=== PATIENT | female | born 1965 | race Caucasian/White ===

== ENCOUNTER 2017-06-09 09:37 | Inpatient (IN) | payer BC ==
[~2017-06-09] VITALS: Ht 160 cm; Wt 101.3 kg
[~2017-06-09 09:37] MED LIST: COUMADIN 1MG1 MG/TAB; HCTZ12.5TAB; KLOR-CON M2020 MEQ; LORTAB 5/500 501 TAB PO; NORCO 325 MG-51 TAB PO
[2017-06-25] VITALS (11 sets, daily range): BP systolic 117–165; BP diastolic 56–99; PULSE 78–94; TEMP 97.8–98.9
[2017-06-25] MEDS ORDERED: HCTZ 25MG TAB25 MG PO (06:52)
[2017-06-25] MEDS ORDERED: ELIQUIS 5MG PO (06:53)
[2017-06-25] MEDS ORDERED: K-DUR20 MEQ PO (06:54)
[2017-06-25] MEDS ORDERED: ZOFRAN 4MG T4 MG/TAB PO (06:54)
[2017-06-25] MEDS ORDERED: VALIUM 5MG T5 MG/TAB PO (06:56)
[2017-06-25] MEDS ORDERED: CHLOR TRIMETON 44 MG PO (06:57)
[2017-06-25] MEDS ORDERED: DILAUDID 2MG TAB2 MG PO (06:57)
[2017-06-25] MEDS ORDERED: DULCOLAX TAB5 MG PO (06:58)
[2017-06-25 19:40] LABS: HEMATOCRIT 43.9 % (37.0-47.0); HEMOGLOBIN 14.3 g/dl (12.5-16.0)
[2017-06-26] VITALS (7 sets, daily range): BP systolic 107–164; BP diastolic 64–96; PULSE 67–100; TEMP 97.6–98.6
[2017-06-26 05:36] LABS: BASO % 0.1 % (0.0-2.0); GRAN # 14.3 (1.4-6.5); GRAN % 81.4 % (42.2-75.2); HEMATOCRIT 39.8 % (37.0-47.0); LYMPH # 1.8 (1.2-3.4); LYMPH % 10.1 % (20.0-51.0); MEAN CELL VOLUME 90 fl (80.0-100.0); MEAN CORPUSCULAR HEMOGLOBIN 29 pg (27.0-31.0); MEAN CORPUSCULAR HGB CONC 33 g/dl (33.0-37.0); MEAN PLATELET VOLUME 10.5 fl (7.4-10.4); MONO # 1.4 (0.1-0.6); MONO % 7.9 % (1.7-9.3); PLATELET COUNT 230 K/mm3 (130-400); RED BLOOD COUNT 4.42 M/mm3 (4.10-5.30); REDCELL DISTRIBUTION WIDTH-CV 12.7 % (11.5-14.5); WHITE BLOOD COUNT 17.5 K/mm3 (4.8-10.8)
[2017-06-26 05:46] LABS: CALCIUM 8.9 mg/dL (8.4-10.2); CREATININE, serum 0.68 mg/dL (0.52-1.25); POTASSIUM 3.3 mmol/L (3.4-5.0)
[2017-06-26] MEDS ORDERED: ZOFRAN 4MG T4 MG/TAB PO (09:50)
[2017-06-26 15:14] LABS: HEMATOCRIT 42.6 % (37.0-47.0); HEMOGLOBIN 13.6 g/dl (12.5-16.0)
[2017-06-27 01:35] VITALS: BP 93/72; PULSE 92; TEMP 98.7
[2017-06-27 04:57] VITALS: BP 99/50; PULSE 99; TEMP 98.4
[2017-06-27 09:29] VITALS: BP 128/66; PULSE 100; TEMP 98.3
[2017-06-27 11:53] LABS: BASO # 0.1 (0.0-0.2); BASO % 0.5 % (0.0-2.0); EOS # 0.1 (0.0-0.7); EOS % 0.5 % (0-4.0); GRAN # 6.3 (1.4-6.5); GRAN % 60.5 % (42.2-75.2); LYMPH % 29.2 % (20.0-51.0); MEAN CELL VOLUME 94 fl (80.0-100.0); MEAN CORPUSCULAR HGB CONC 32 g/dl (33.0-37.0); MEAN PLATELET VOLUME 10.7 fl (7.4-10.4); MONO # 0.9 (0.1-0.6); MONO % 8.7 % (1.7-9.3); PLATELET COUNT 202 K/mm3 (130-400); RED BLOOD COUNT 3.16 M/mm3 (4.10-5.30); REDCELL DISTRIBUTION WIDTH-CV 12.7 % (11.5-14.5); WHITE BLOOD COUNT 10.4 K/mm3 (4.8-10.8)
[2017-06-27 11:55] LABS: HEMATOCRIT 29.8 % (37.0-47.0); HEMOGLOBIN 9.4 g/dl (12.5-16.0); MEAN CORPUSCULAR HEMOGLOBIN 30 pg (27.0-31.0)
[2017-06-27 11:59] LABS: ALBUMIN 2.9 gm/dL (3.5-5.0); CALCIUM 8.2 mg/dL (8.4-10.2); CREATININE, serum 0.72 mg/dL (0.52-1.25); PHOSPHOROUS 2.9 mg/dL (2.5-4.5); POTASSIUM 3.9 mmol/L (3.4-5.0)
[2017-06-27 13:41] VITALS: BP 117/50; PULSE 103; TEMP 98.2
[2017-06-27 18:40] VITALS: BP 127/49; PULSE 94; TEMP 98.9
[2017-06-27 22:14] VITALS: BP 134/79; PULSE 113; TEMP 98.5
[2017-06-28 01:52] VITALS: BP 104/43; PULSE 92; TEMP 98.5
[2017-06-28 06:03] VITALS: BP 110/59; PULSE 88; TEMP 98.2
[2017-06-28 08:19] LABS: BASO # 0.1 (0.0-0.2); BASO % 0.6 % (0.0-2.0); EOS # 0.1 (0.0-0.7); GRAN # 6.1 (1.4-6.5); LYMPH # 3.3 (1.2-3.4); LYMPH % 30.8 % (20.0-51.0); MEAN CELL VOLUME 91 fl (80.0-100.0); MEAN CORPUSCULAR HGB CONC 33 g/dl (33.0-37.0); MEAN PLATELET VOLUME 12.2 fl (7.4-10.4); MONO % 9.2 % (1.7-9.3); RED BLOOD COUNT 3.08 M/mm3 (4.10-5.30); REDCELL DISTRIBUTION WIDTH-CV 12.8 % (11.5-14.5); WHITE BLOOD COUNT 10.6 K/mm3 (4.8-10.8)
[2017-06-28 08:20] LABS: CALCIUM 8.8 mg/dL (8.4-10.2); CREATININE, serum 0.71 mg/dL (0.52-1.25); POTASSIUM 3.2 mmol/L (3.4-5.0)
[2017-06-28 08:25] LABS: HEMATOCRIT 28.1 % (37.0-47.0); HEMOGLOBIN 9.2 g/dl (12.5-16.0); MEAN CORPUSCULAR HEMOGLOBIN 30 pg (27.0-31.0); PLATELET COUNT 54 K/mm3 (130-400)
[2017-06-28 10:57] VITALS: BP 113/58; PULSE 86; TEMP 98.2
[2017-06-28 14:20] VITALS: BP 120/75; PULSE 65; TEMP 98.3
[2017-06-28 15:09] LABS: HEMATOCRIT 28.2 % (37.0-47.0); HEMOGLOBIN 9.5 g/dl (12.5-16.0)
[2017-06-28 17:54] VITALS: BP 102/70; PULSE 91; TEMP 98
[2017-06-28 21:45] VITALS: BP 103/58; PULSE 97; TEMP 99.6
[2017-06-29 02:22] VITALS: BP 93/63; PULSE 77; TEMP 98.1
[2017-06-29 05:34] VITALS: BP 99/61; PULSE 66; TEMP 98.3
[2017-06-29 07:38] LABS: HEMATOCRIT 23.5 % (37.0-47.0); HEMOGLOBIN 7.7 g/dl (12.5-16.0)
[2017-06-29 07:39] LABS: CALCIUM 8.5 mg/dL (8.4-10.2); CREATININE, serum 0.63 mg/dL (0.52-1.25); POTASSIUM 3.5 mmol/L (3.4-5.0)
[2017-06-29 10:44] VITALS: BP 108/64; PULSE 74; TEMP 98.5
[2017-06-29 13:58] VITALS: BP 117/74; PULSE 84; TEMP 98.6
[2017-06-29 15:31] LABS: HEMATOCRIT 26.4 % (37.0-47.0); HEMOGLOBIN 8.6 g/dl (12.5-16.0)
== END 2017-06-29 17:14 | disposition home or self-care (01) | DRG 331 ==
LOC: INPTSU 06-25 05:33 → JCC 06-25 05:33 → SURG 06-25 07:30 → JCC 06-25 10:36
PROVIDERS: Surgery
PROC: 0DTF4ZZ Resection of Right Large Intestine, Percutaneous Endoscopic Approach (ICD-10-PCS; principal; 2017-06-25 07:30)
DX: D12.3 Benign neoplasm of transverse colon (principal); E66.09 Other obesity due to excess calories; Z68.39 Body mass index [BMI] 39.0-39.9, adult; Z86.711 Personal history of pulmonary embolism; Z79.01 Long term (current) use of anticoagulants
CPT/HCPCS: A4315; J0360; J0694; J1100; J1170; J1650; J1885; J2310; J2405; J2550; J2704; J3010; J7120

== ENCOUNTER → 2017-09-07 | Outpatient (CLI) | payer BC ==
[~2017-09-07] MED LIST changes: +CHLOR TRIMETON 44 MG PO; +DILAUDID 2MG TAB2 MG PO; +DULCOLAX TAB5 MG PO; +ELIQUIS 5MG PO; +HCTZ 25MG TAB25 MG PO; +K-DUR20 MEQ PO; +VALIUM 5MG T5 MG/TAB PO; +ZOFRAN 4MG T4 MG/TAB PO
== END ==
LOC: MHCPAIN 11:13
DX: G89.29 Other chronic pain (principal); M47.814 Spondylosis without myelopathy or radiculopathy, thoracic region; M79.1 Myalgia; Z79.02 Long term (current) use of antithrombotics/antiplatelets
CPT/HCPCS: G0463